=== PATIENT | female | born 1950 | race Caucasian/White ===

== ENCOUNTER 2018-12-09 18:41 | Outpatient (REF) | payer MEDICARE, BC, SELFPAY ==
[2018-12-09 23:08] LABS: ALT 32 U/L (12-78); AST 22 U/L (15-37); Albumin 3.9 g/dL (3.4-5.0); Alkaline Phosphatase 82 U/L (46-116); Anion Gap 11.3 mmol/L (3-11); BUN 11 mg/dL (7-18); Bilirubin, Total 0.7 mg/dL (0.2-1.0); CO2 27.7 mmol/L (21.0-32.0); Calcium 9.4 mg/dL (8.5-10.1); Chloride 105 mmol/L (98-107); Cholesterol 196 mg/dL (50-200); Glucose 115 mg/dL (70-100); HDL Cholesterol 40 mg/dL (40-60); LDL CHOLESTEROL 134 mg/dL (<100); Magnesium 1.5 mg/dL (1.8-2.4); Sodium 144 mmol/L (136-145); TSH 0.08 uIU/mL (0.358-3.74); Total Protein 6.4 g/dL (6.4-8.2); Triglyceride 119 mg/dL (30-150)
== END 2018-12-09 19:01 ==
LOC: NCHCN 18:41
PROVIDERS: PCP Family Medicine; Visit Provider Family Medicine
DX: E11.9 Type 2 diabetes mellitus without complications (principal); E78.5 Hyperlipidemia, unspecified; K59.00 Constipation, unspecified
CPT/HCPCS: 80053; 80061; 83721; 83735; 84443

== ENCOUNTER 2019-02-23 12:15 | Outpatient (REF) | payer MEDICARE, BC, SELFPAY ==
[2019-02-23 22:22] LABS: Magnesium 1.8 mg/dL (1.8-2.4); TSH (W/Ref FT4) 0.23 uIU/mL (0.358-3.74)
[2019-02-23 22:50] LABS: FREE T4 1.36 ng/dL (0.76-1.46)
== END 2019-02-23 12:35 ==
LOC: NCHCN 12:15
PROVIDERS: PCP Family Medicine; Visit Provider Family Medicine
DX: E03.9 Hypothyroidism, unspecified (principal); E61.2 Magnesium deficiency
CPT/HCPCS: 83735; 84439; 84443

== ENCOUNTER 2019-04-26 16:42 | Outpatient (REF) | payer MEDICARE, BC, SELFPAY ==
[2019-04-26 21:38] LABS: TSH (W/Ref FT4) 1.28 uIU/mL (0.36-3.74)
== END 2019-04-26 17:02 ==
LOC: NCHCN 16:42
PROVIDERS: PCP Family Medicine; Visit Provider Family Medicine
DX: E03.9 Hypothyroidism, unspecified (principal)
CPT/HCPCS: 84443

== ENCOUNTER 2019-09-03 15:26 | Outpatient (REF) | payer MEDICARE, BC, SELFPAY ==
[2019-09-03 21:52] LABS: Hemoglobin A1C 7.1 % (4.5-6.2)
[2019-09-03 21:54] LABS: COMMENT (LAB VIEW ONLY) 147.52 mg/dL; Microalb ug/mg Crea 10.6 ug/mg Cr
[2019-09-03 22:00] LABS: ALT 26 U/L (14-59); AST 12 U/L (15-37); Albumin 4.3 g/dL (3.4-5.0); Alkaline Phosphatase 79 U/L (46-116); Anion Gap 11.4 mmol/L (3-11); BUN 18 mg/dL (7-18); Bilirubin, Total 0.7 mg/dL (0.2-1.0); CO2 25.6 mmol/L (21.0-32.0); CREATININE 1.11 mg/dL (0.55-1.02); Calcium 9.5 mg/dL (8.5-10.1); Calculated LDL 155 mg/dL; Chloride 101 mmol/L (98-107); Cholesterol 234 mg/dL (<200); Estimated GFR 48.59 (mL/min/1.73m2); Glucose 173 mg/dL (74-106); HDL Cholesterol 39 mg/dL (40-60); Potassium 4.3 mmol/L (3.5-5.1); Sodium 138 mmol/L (136-145); TSH 0.99 uIU/mL (0.36-3.74); Total Protein 6.6 g/dL (6.4-8.2); Triglyceride 204 mg/dL (<150)
== END 2019-09-03 15:46 ==
LOC: NCHCN 15:26
PROVIDERS: PCP Family Medicine; Visit Provider Family Medicine
DX: E03.9 Hypothyroidism, unspecified (principal); E11.9 Type 2 diabetes mellitus without complications; E78.5 Hyperlipidemia, unspecified; M79.10 Myalgia, unspecified site
CPT/HCPCS: 80053; 80061; 82043; 82570; 83036; 84443

== ENCOUNTER 2019-12-13 12:52 | Outpatient (REF) | payer MEDICARE, BC, SELFPAY ==
[2019-12-13 21:21] LABS: Anion Gap 10.1 mmol/L (3-11); BUN 18 mg/dL (7-18); CO2 26.9 mmol/L (21.0-32.0); CREATININE 1.01 mg/dL (0.55-1.02); Calcium 9.5 mg/dL (8.5-10.1); Chloride 101 mmol/L (98-107); Estimated GFR 54.19 (mL/min/1.73m2); Glucose 163 mg/dL (74-106); Potassium 4.8 mmol/L (3.5-5.1); Sodium 138 mmol/L (136-145)
[2019-12-13 21:29] LABS: Hemoglobin A1C 7.4 % (3.8-5.6)
[2019-12-13 21:39] LABS: Calculated LDL 175 mg/dL (<100); Cholesterol 249 mg/dL (<200); HDL Cholesterol 46 mg/dL (40-60); Triglyceride 143 mg/dL (<150)
== END 2019-12-13 13:12 ==
LOC: NCHCN 12:52
PROVIDERS: PCP Family Medicine; Visit Provider Family Medicine
DX: E78.5 Hyperlipidemia, unspecified (principal); E11.9 Type 2 diabetes mellitus without complications; R94.4 Abnormal results of kidney function studies
CPT/HCPCS: 80048; 80061; 83036

== ENCOUNTER 2020-12-08 15:08 | Outpatient (REF) | payer MEDICARE, BC, SELFPAY ==
[2020-12-08 13:24] LABS: ALT 26 U/L (14-59); AST 12 U/L (15-37); Albumin 3.9 g/dL (3.4-5.0); Alkaline Phosphatase 83 U/L (46-116); Anion Gap 9.5 mmol/L (3-11); BUN 21 mg/dL (7-18); Bilirubin, Total 0.5 mg/dL (0.2-1.0); CO2 26.5 mmol/L (21.0-32.0); Calcium 9.4 mg/dL (8.5-10.1); Calculated LDL 144 mg/dL (<100); Chloride 102 mmol/L (98-107); Cholesterol 225 mg/dL (<200); Estimated GFR 54.66 (mL/min/1.73m2); Glucose 159 mg/dL (74-106); HDL Cholesterol 44 mg/dL (40-60); Potassium 3.9 mmol/L (3.5-5.1); Sodium 138 mmol/L (136-145); Total Protein 6.6 g/dL (6.4-8.2); Triglyceride 185 mg/dL (<150)
[2020-12-08 13:33] LABS: Hemoglobin A1C 7.1 % (<5.7)
== END 2020-12-08 15:09 | disposition home or self-care (01) ==
LOC: NCHCN 15:08
PROVIDERS: PCP Family Medicine; Visit Provider Family Medicine
DX: E78.5 Hyperlipidemia, unspecified (principal); E11.9 Type 2 diabetes mellitus without complications; I10 Essential (primary) hypertension; Z79.4 Long term (current) use of insulin
CPT/HCPCS: 80053; 80061; 83036

== ENCOUNTER 2021-12-11 17:57 | Outpatient (REF) | payer MEDICARE, BC, SELFPAY ==
[2021-12-11 15:12] LABS: Hemoglobin A1C 7.5 % (<5.7)
[2021-12-11 15:20] LABS: ALT 20 U/L (14-59); AST 13 U/L (15-37); Albumin 3.7 g/dL (3.4-5.0); Alkaline Phosphatase 64 U/L (46-116); BUN 13 mg/dL (7-18); Bilirubin, Total 0.5 mg/dL (0.2-1.0); CREATININE 0.9 mg/dL (0.55-1.02); Calcium 8.8 mg/dL (8.5-10.1); Calculated LDL 150 mg/dL (<100); Chloride 105 mmol/L (98-107); Cholesterol 217 mg/dL (<200); Glucose 137 mg/dL (74-106); HDL Cholesterol 44 mg/dL (40-60); Potassium 4.1 mmol/L (3.5-5.1); Sodium 140 mmol/L (136-145); TSH 0.65 uIU/mL (0.36-3.74); Total Protein 6.2 g/dL (6.4-8.2); Triglyceride 119 mg/dL (<150)
== END 2021-12-11 17:58 | disposition home or self-care (01) ==
LOC: NCHCN 17:57
PROVIDERS: PCP Family Medicine; Visit Provider Family Medicine
DX: E11.9 Type 2 diabetes mellitus without complications (principal); I10 Essential (primary) hypertension; E78.5 Hyperlipidemia, unspecified; E03.9 Hypothyroidism, unspecified
CPT/HCPCS: 80053; 80061; 83036; 84443

== ENCOUNTER 2022-03-20 15:25 | Outpatient (REF) | payer MEDICARE, BC, SELFPAY ==
[2022-03-20 16:10] LABS: Microalb ug/mg Crea 7.7 ug/mg Cr
== END 2022-03-20 15:26 | disposition home or self-care (01) ==
LOC: NCHCN 15:25
PROVIDERS: PCP Family Medicine; Visit Provider Family Medicine
DX: E11.9 Type 2 diabetes mellitus without complications (principal); Z79.4 Long term (current) use of insulin
CPT/HCPCS: 82043; 82570

== ENCOUNTER 2023-03-13 10:56 | Outpatient (REF) | payer MEDICARE, BC, SELFPAY ==
[2023-03-13 15:19] LABS: ALT 25 U/L (14-59); AST 16 U/L (15-37); Albumin 3.5 g/dL (3.4-5.0); Alkaline Phosphatase 77 U/L (46-116); Anion Gap 8.8 mmol/L (3-11); BUN 18 mg/dL (7-18); Bilirubin, Total 0.4 mg/dL (0.2-1.0); CO2 27.2 mmol/L (21.0-32.0); CREATININE 0.9 mg/dL (0.55-1.02); Calcium 9.1 mg/dL (8.5-10.1); Chloride 106 mmol/L (98-107); Glucose 248 mg/dL (74-106); Potassium 4.1 mmol/L (3.5-5.1); Sodium 142 mmol/L (136-145); TSH 0.44 uIU/mL (0.36-3.74); Total Protein 6.5 g/dL (6.4-8.2)
[2023-03-13 15:39] LABS: Hemoglobin A1C 6.9 % (<5.7)
[2023-03-13 16:09] LABS: Calculated LDL 146 mg/dL (<100); Cholesterol 215 mg/dL (<200); HDL Cholesterol 49 mg/dL (40-60); Triglyceride 104 mg/dL (<150)
== END 2023-03-13 10:57 | disposition home or self-care (01) ==
LOC: NCHCN 10:56
PROVIDERS: PCP Family Medicine; Visit Provider Family Medicine
DX: E66.9 Obesity, unspecified (principal); E11.9 Type 2 diabetes mellitus without complications; E78.5 Hyperlipidemia, unspecified; E03.9 Hypothyroidism, unspecified; I10 Essential (primary) hypertension
CPT/HCPCS: 80053; 80061; 83036; 84443

== ENCOUNTER 2023-03-20 11:05 | Outpatient (REF) | payer MEDICARE, BC, SELFPAY ==
[2023-03-20 14:59] LABS: COMMENT (LAB VIEW ONLY) 142.62 mg/dL
[2023-03-20 15:05] LABS: Microalb ug/mg Crea 76.1 ug/mg Cr
== END 2023-03-20 11:06 | disposition home or self-care (01) ==
LOC: NCHCN 11:05
PROVIDERS: PCP Family Medicine; Visit Provider Family Medicine
DX: E11.9 Type 2 diabetes mellitus without complications (principal)
CPT/HCPCS: 82043; 82570

== ENCOUNTER 2023-09-16 20:12 | Outpatient (REF) | payer MEDICARE, BC, SELFPAY ==
[2023-09-16 15:31] LABS: COMMENT (LAB VIEW ONLY) 111.58 mg/dL
== END 2023-09-16 20:13 | disposition home or self-care (01) ==
LOC: NCHCN 20:12
PROVIDERS: PCP Family Medicine; Visit Provider Family Medicine
DX: E11.9 Type 2 diabetes mellitus without complications (principal)
CPT/HCPCS: 82043; 82570

== ENCOUNTER 2023-12-17 09:35 | Outpatient (REF) | payer MEDICARE, BC, SELFPAY | END 2023-12-17 09:36 | disposition home or self-care (01) | LOC: NCHCN 09:35 | PROVIDERS: PCP Family Medicine; Visit Provider Family Medicine | DX: E11.9 Type 2 diabetes mellitus without complications (principal) | CPT/HCPCS: 83036 ==

== ENCOUNTER 2024-04-13 14:50 | Outpatient (REF) | payer MEDICARE, BC, SELFPAY ==
[2024-04-13 17:12] LABS: ALT 24 U/L (14-59); AST 16 U/L (15-37); Albumin 3.6 g/dL (3.4-5.0); Alkaline Phosphatase 81 U/L (46-116); Anion Gap 10.7 mmol/L (3-11); BUN 17 mg/dL (7-18); Bilirubin, Total 0.58 mg/dL (0.2-1.0); CO2 25.3 mmol/L (21.0-32.0); Calcium 9.1 mg/dL (8.5-10.1); Calculated LDL 131 mg/dL (<100); Chloride 107 mmol/L (98-107); Cholesterol 197 mg/dL (<200); Estimated GFR 59.12 (mL/min/1.73m2); Glucose 137 mg/dL (74-106); HDL Cholesterol 45 mg/dL (40-60); Potassium 4.1 mmol/L (3.5-5.1); Sodium 143 mmol/L (136-145); TSH (W/Ref FT4) 3.53 uIU/mL (0.36-3.74); Total Protein 6.5 g/dL (6.4-8.2); Triglyceride 108 mg/dL (<150)
[2024-04-13 17:16] LABS: Hemoglobin A1C 6.6 % (<5.7)
== END 2024-04-13 14:51 | disposition home or self-care (01) ==
LOC: NCHCN 14:50
PROVIDERS: PCP Family Medicine; Visit Provider Family Medicine
DX: E03.9 Hypothyroidism, unspecified (principal); E78.5 Hyperlipidemia, unspecified; E11.9 Type 2 diabetes mellitus without complications
CPT/HCPCS: 80053; 80061; 83036; 84443

== ENCOUNTER 2024-06-16 17:05 | Outpatient (REF) | payer MEDICARE, BC, SELFPAY ==
[2024-06-16 14:58] LABS: TSH 1.69 uIU/Ml (0.36-3.74)
== END 2024-06-16 17:06 | disposition home or self-care (01) ==
LOC: NCHCN 17:05
PROVIDERS: PCP Family Medicine; Visit Provider Family Medicine
DX: E03.9 Hypothyroidism, unspecified (principal)
CPT/HCPCS: 84443

== ENCOUNTER 2024-08-27 17:30 | Outpatient (REF) | payer MEDICARE, BC, SELFPAY ==
[2024-08-27 21:28] LABS: COMMENT (LAB VIEW ONLY) 177.58 mg/dL; Microalb ug/mg Crea 54.2 ug/mg Cr
== END 2024-08-27 17:31 | disposition home or self-care (01) ==
LOC: NCHCN 17:30
PROVIDERS: PCP Family Medicine; Visit Provider Family Medicine
DX: E11.9 Type 2 diabetes mellitus without complications (principal)
CPT/HCPCS: 82043; 82570

== ENCOUNTER 2025-05-06 21:03 | Outpatient (REF) | payer MEDICARE, BC, OTHER, SELFPAY ==
[2025-05-06 14:48] LABS: Hemoglobin A1C 6.3 % (<5.7)
[2025-05-06 15:04] LABS: ALT 26 U/L (14-59); AST 22 U/L (15-37); Albumin 3.9 g/dL (3.4-5.0); Alkaline Phosphatase 70 U/L (46-116); Anion Gap 8.1 mmol/L (3-11); BUN 16 mg/dL (7-18); Bilirubin, Total 0.7 mg/dL (0.2-1.0); CO2 28.9 mmol/L (21.0-32.0); Calcium 10.3 mg/dL (8.5-10.1); Calculated LDL 120 mg/dL (<100); Chloride 100 mmol/L (98-107); Cholesterol 196 mg/dL (<200); Estimated GFR 58.75 (mL/min/1.73m2); Glucose 152 mg/dL (74-106); HDL Cholesterol 42 mg/dL (>or=50); Potassium 4.4 mmol/L (3.5-5.1); Sodium 137 mmol/L (136-145); TSH 2.40 uIU/mL (0.36-3.74); Total Protein 7.0 g/dL (6.4-8.2); Triglyceride 171 mg/dL (<150)
== END 2025-05-06 21:04 | disposition home or self-care (01) ==
LOC: NCHCN 21:03
PROVIDERS: PCP Family Medicine; Visit Provider Family Medicine
DX: E78.5 Hyperlipidemia, unspecified (principal); E11.9 Type 2 diabetes mellitus without complications; E03.9 Hypothyroidism, unspecified
CPT/HCPCS: 80053; 80061; 83036; 84443